=== PATIENT | male | born 1955 | race Asian ===

== ENCOUNTER 2019-03-23 09:49 | Day surgery (SDC) | payer MEDICARE ==
[~2019-03-23] VITALS: Ht 157.5 cm; Wt 75.9 kg
[~2019-03-23 09:49] MED LIST: BAYER CHEWABLE81 MG PO; DULCOLAX5 MG PO; ISOSORBIDE MONO30 M1 PO; KLOR-CON 1010 MEQ PO; LANTUS SOL100 UNIT/1 SC; LASIX80 MG PO; METOPROLOL TART25 MG PO; NORVASC5 MG PO; OMEPRAZOLE40 MG PO; PLAVIX75 MG PO
[2019-03-23 10:26] LABS: HEMATOCRIT 40.2 % (42.0-54.0); HEMOGLOBIN 12.7 g/dL (13.5-17.5); MCHC 31.6 g/dL (31.0-37.0); MCV 94.8 fL (80.0-100.0); MEAN PLATELET VOLUME 9.3 fL (7.4-10.4); RBC 4.24 10x6/uL (4.20-6.10); WBC 8.4 10x3/uL (4.8-10.8)
[2019-03-23 10:38] LABS: ANION GAP 12.2 mmol/L (8-16); CARBON DIOXIDE 29.9 mmol/L (21.0-32.0)
[2019-03-23 10:48] LABS: POTASSIUM - SERUM 7.1 mmol/L (3.5-5.1)
--- NOTE | 2019-03-23 11:07 | NUR ---
POTASSIUM OF 7.1 CALLED TO [facility]GO[facility], HOLD SURGERY FOR NOW AND WILL CALL BACK WITH FURTHER ORDERS.
--- NOTE | 2019-03-23 12:00 | NUR ---
RECEIVED REPORT FROM SABRINA IN OUTPATIENT. PATIENT TO UNIT SOON.
--- NOTE | 2019-03-23 12:06 | NUR ---
1100-RECD TO WAITING ROOM, NO BEDS AVAILABLE 1105-CRITICAL POTASSIUM OF 7.1 RECD, CALL IN TO [facility] FOR RENAL GROUP. 1140-TO ROOM 2504 TO PREP FOR SURGERY 1150-TELEPHONE ORDERS RECD FROM [facility] 1200-[facility] HERE. SAYS TAKE PATIENT TO DIALYSIS NOW, SHE IS READY FOR HIM. 1205-REPORT CALLED TO EV[facility]ISTO ON MED 2-WILL GO TO 2101 POST DIALYSIS. 1210-TELEPHONE ORDERS RECD FROM DR HERNANDEZ TO CANCEL SURGERY TODAY AND RESCHEDULE FOR TOMORROW. ELIZABETH IN OR NOTIFIED.
--- NOTE | 2019-03-23 12:11 | NUR ---
1211JET IN DIALYSIS NOTIFIED PATIENTS SURGERY FOR TODAY IS CX AND HE WILL GO TO ROOM 2101.
[2019-03-23 12:16] VITALS: BMI 30.6
[2019-03-23] MEDS ORDERED: LEXAPRO5 MG PO (12:47)
[2019-03-23] MEDS ORDERED: ROCALTROL0.25 MCG PO (12:48)
[2019-03-23] MEDS ORDERED: HYDRALAZINE HCL25 MG PO (12:48)
[2019-03-23] MEDS ORDERED: RENVELA800 MG PO (12:48)
--- NOTE | 2019-03-23 15:13 | NUR ---
PATIENT ARRIVED TO UNIT VIA WHEELCHAIR FROM DIALYSIS. PATIENT ALERT/ORIENTED. PATIENT AMBULATORY. PATIENT DOES NOT HAVE A LIST OF HIS MEDICATIONS AND CAN NOT TELL ME WHAT HE TAKES. CALLED [facility] IN [place] AND TARUN IS FAXING THIS CALCULATION CLERK A LIST OF HIS CURRENT MEDICATIONS. PROVIDED PATIENT WITH SANDWHICH, GRAPES AND DIET LEMON PICAYUNE PATIENT HAS BEEN NPO SINCE LAST NIGHT AND HE IS HUNGRY. CALL LIGHT PLACED WITHIN REACH AND PATIENT VERBALIZED UNDERSTANDING ON HOW TO USE CALL LIGHT. ORIENTED TO ROOM. PATIENT HAS NO FURTHER REQUESTS AT THIS TIME.
--- NOTE | 2019-03-23 16:04 | NUR ---
GREGOR LOO, RENAL FAN MAIL EDITOR, PATIENT MAY HAVE HIS HYDRALAZINE NOW DUE TO ELEVATED BP AFTER DIALYSIS.
[2019-03-23 16:44] VITALS: BP 183/109; BMI 30.6
--- NOTE | 2019-03-23 18:04 | NUR ---
TOOTHBRUTH AND TOOTHPASTE PROVIDED TO PATIENT. CALL LIGHT WITHIN REACH. NO DISTRESS. DENIES NEEDS AT THIS TIME.
[2019-03-23 18:06] VITALS: BP 163/87
--- NOTE | 2019-03-23 19:00 | NUR ---
EVENING ROUNDS COMPLETE. PT LAYING IN BED. NO SIGNS OF DISTRESS. PT DENIES ANY PAIN OR NEEDS AT THIS TIME. CL IN REACH, BED IN LOWEST POSITION.
[2019-03-23 20:00] VITALS: BP 130/70
[2019-03-24] VITALS: BP 145/81
[2019-03-24 04:00] VITALS: BP 124/69
[2019-03-24 06:11] LABS: BASOPHILS 0.3 % (0-2); EOSINOPHILS 5.5 % (0-7); HEMATOCRIT 36.8 % (42.0-54.0); HEMOGLOBIN 11.4 g/dL (13.5-17.5); IMMATURE GRANULOCYTES 0.3 % (0-5); LYMPHOCYTES 24.9 % (15-50); MCH 29.3 pg (26.0-34.0); MCV 94.6 fL (80.0-100.0); MEAN PLATELET VOLUME 9.7 fL (7.4-10.4); MONOCYTES 19.9 % (2-11); NEUTROPHILS 49.1 % (40-80); PLATELET COUNT 217 10x3/uL (130-400); RBC 3.89 10x6/uL (4.20-6.10); RDW 17.9 % (11.5-14.5); WBC 5.8 10x3/uL (4.8-10.8)
[2019-03-24 06:26] LABS: ANION GAP 10.8 mmol/L (8-16); CALCIUM 7.7 mg/dL (8.5-10.1); CARBON DIOXIDE 28.2 mmol/L (21.0-32.0); CREATININE - SERUM 4.1 mg/dL (0.6-1.3)
--- NOTE | 2019-03-24 06:50 | NUR ---
RECEIVED REPORT. ALERT ABLE TO VOICE NEEDS, DENIES ANY CURRENT ONES. RIGHT HEMOSPLIT INTACT. BED IN LOWEST POSITION AND LOCKED. CAREPLAN REVIEW DONE WITH SAFETY PRECAUTIONS IN PLACE. CL IN REACH
[2019-03-24 09:25] VITALS: BP 163/92
[2019-03-24 12:39] VITALS: Ht 157.5 cm; Wt 75.9 kg
--- NOTE | 2019-03-24 13:30 | NUR ---
DR HERNANDEZ OFFICE CALLED STATED HE COULD EAT AND HIS PROCEDURE WOULD BE DONE TOMORROW. HIM AND FAMILY IN ROOM EXPLAINED THIS AND TRAY WAS ORDERED
[2019-03-24 14:02] VITALS: BP 138/82
[2019-03-24 17:43] VITALS: BP 141/73
--- NOTE | 2019-03-24 19:00 | NUR ---
EVENING ROUNDS COMPLETE. PT SITTING UP ON SIDE OF BED. NO SIGNS OF DISTRESS. CL IN REACH, BED IN LOWEST POSITION. NO C/O PAIN.
[2019-03-24 20:00] VITALS: BP 134/83
[2019-03-25] VITALS: BP 120/69
[2019-03-25 04:00] VITALS: BP 123/69
[2019-03-25 05:12] LABS: BASOPHILS 0.6 % (0-2); EOSINOPHILS 4.7 % (0-7); HEMATOCRIT 36.8 % (42.0-54.0); HEMOGLOBIN 11.6 g/dL (13.5-17.5); IMMATURE GRANULOCYTES 0.2 % (0-5); LYMPHOCYTES 23.2 % (15-50); MCH 29.6 pg (26.0-34.0); MCHC 31.5 g/dL (31.0-37.0); MCV 93.9 fL (80.0-100.0); MEAN PLATELET VOLUME 9.2 fL (7.4-10.4); MONOCYTES 18.2 % (2-11); NEUTROPHILS 53.1 % (40-80); PLATELET COUNT 213 10x3/uL (130-400); RBC 3.92 10x6/uL (4.20-6.10); RDW 17.7 % (11.5-14.5); WBC 6.6 10x3/uL (4.8-10.8)
[2019-03-25 05:32] LABS: ANION GAP 13.3 mmol/L (8-16); CARBON DIOXIDE 25.7 mmol/L (21.0-32.0)
[2019-03-25 05:55] LABS: CREATININE - SERUM 5.3 mg/dL (0.6-1.3)
--- NOTE | 2019-03-25 06:55 | NUR ---
REPORT RECIEVED. HE HAS BEEN NPO SINCE MIDNIGHT FOR FISTULA PLACEMENT THIS AM. HE IS AWAKE AND ALERT, DENIES ANY PAIN OR CURRENT NEEDS, CL IN REACH BED IS LOCKED AND IN LOWEST POSITION. CAREPLAN REVIEW DONE WITH SAFETY PRECAUTIONS IN PLACE. RESP EVEN WITHOUT LABOR
[2019-03-25 08:30] VITALS: BP 125/81
--- NOTE | 2019-03-25 14:13 | NUR ---
MEETS ANESTHESIA DISCHARGE CRITERIA
--- NOTE | 2019-03-25 14:30 | NUR ---
RETURN FROM OR LEFT UPPER ARM AV FISTULA WITH ANAMARIA DRAIN, TWO DRESSING TO INNER ARM AND ONE TO OUTER SIDE OF ARM. HE IS DROWSY BUT AROUSES EASILY. RESP EVEN WITHOUT LABOR DENIES PAIN VSS. HE TOOK SOME WATER.
[2019-03-25 14:31] VITALS: BP 150/90
--- NOTE | 2019-03-25 16:30 | NUR ---
DROWSY BUT AROUSES EASILY. HE HAS TAKEN WATER AND RAIZA WELL NO C/O NAUSEA OR PAIN. TRANSPORTED DOWN TO DIALYSIS VIA BED.
[2019-03-25 16:37] VITALS: BP 129/72
--- NOTE | 2019-03-25 19:05 | NUR ---
EVENING ROUNDS COMPLETE, PT IS AT DIALYSIS AT THIS TIME.
[2019-03-25 20:00] VITALS: BP 152/73
--- NOTE | 2019-03-25 20:00 | NUR ---
PT BACK FROM DIALYSIS. NO SIGNS OF DISTRESS. PT DENIES ANY NEEDS AT THIS TIME.
--- NOTE | 2019-03-25 21:29 | OP ---
PATIENT NAME: RAPHAEL ANNA MEDICAL RECORD: [id number] :53 LOCATION:D.M2 D.2101 ADMISSION DATE: SURGEON: MISSAEL HERNANDEZ MD DATE OF OPERATION: 03/25/2019 PREOPERATIVE DIAGNOSIS: End-stage renal disease without peripheral access for hemodialysis. POSTOPERATIVE DIAGNOSIS: End-stage renal disease without peripheral access for hemodialysis. PROCEDURE: Placement of left arm looped arteriovenous graft fistula, 6-mm. SURGEON: Missael Hernandez MD TOURIST INFORMATION ASSISTANT: None. BLOOD LOSS: 100 cc. ANESTHESIA: General. COMPLICATIONS: None. DRAINS: Times 1 (10-Guamanian round drain). The risks, possible complications and alternatives to the procedure were explained to the patient. He elects to proceed. The discussion specifically included, but was not limited to, bleeding requiring emergency reoperation, infection, nerve injury, steal syndrome. OPERATIVE COURSE: The patient was conveyed to the operating room electively on 03/25/2019. General anesthesia was induced by the anesthesia staff. The left lower extremity was abducted at 90 degrees to the patient's trunk. Under ultrasonographic guidance, I identified the brachial artery as well as the brachial veins. An axial incision was accomplished on the medial aspect of the left arm. Sharp dissection was carried down to the basilic vein, which was encircled with vessel loops and then the brachial artery, which was encircled with vessel loops. The posterior brachial vein had to be ligated and divided in order to allow for easier access to the brachial artery. There was still another brachial vein that was intact. This was a brachial artery to basilic vein graft. I created 2 incisions on the lateral aspect of the left arm. I tunneled a 6-mm PTFE graft from the main incision to the secondary incision to the tertiary incision and then back to the main incision. During the tunneling process, there was no apparent kinking or twisting of the PTFE graft. Intravenous heparin was given. An axial incision was accomplished over the brachial artery. I punched out some ovals in the artery with an aortic punch. A side-to-end arterial to graft anastomosis was then fashioned with a running 6-0 Prolene suture. I then flushed out through the graft. A vascular clamp was then placed on the graft. OPERATIVE REPORT [id number] RAPHAEL ANNA At the venous end of the graft, I beveled the graft. Axial venotomy was accomplished. An end-to-side graft to venous anastomosis was then fashioned with a running 6-0 Prolene. Hopefully, this will provide for treble outflow as there was a bridging vein. Control was released on the graft. There was an excellent thrill within the graft. I could not feel a radial artery pulse at the wrist. I elected to partially band the graft at this time. A 2-0 Prolene was applied just downstream from the arterial anastomosis. I tied it down a bit and then tied. I tightened it down to such a degree that I could feel a radial artery pulse at the wrist. Essentially, this was an immediate banding of the graft. At the main incision, I brought out a 10-Guamanian round closed suction drain. This was sutured to skin with 2-0 nylon. The main incision was closed with interrupted 3-0 Vicryls for the adipose tissue as well as a running intracuticular 4-0 Vicryl for the skin. The other two incisions were closed with interrupted 3-0 Vicryls for the deep dermis as well as a running intracuticular 4-0 Vicryl for the skin. Sterile dressings were applied. The patient was then extubated and conveyed to post-anesthesia care unit where he was in stable condition. Hopefully, he can be dismissed home tomorrow. TRANSINT:[id number] Voice Confirmation ID: [id number] DOCUMENT ID: [id number] MISSAEL HERNANDEZ MD at 2127 CC: MAGDA SANDOVAL [id number] DICTATION DATE: 03/25/19 1347 DISK RECORDIST: 03/25/19 1409 [facility] [address] [id number]
[2019-03-26] VITALS: BP 147/75
[2019-03-26 04:00] VITALS: BP 134/72
--- NOTE | 2019-03-26 06:55 | NUR ---
REPORT RECEIVED. HE IS ALERT AND AWAKE. LEFT UPPER ARM WITH DRESSING INTACT TO FISTULA SITES, ANAMARIA DRAIN INTACT. RIGHT CHEST HEMOSPLIT SITE CLEAR. CL IN REACH. BED IS LOCKED AND IN LOWEST POSITION. CAREPLAN REVIEW DONE WITH SAFETY PRECAUTIONS IN PLACE
--- NOTE | 2019-03-26 07:04 | NUR ---
ANAMARIA DRAIN OUTPUT OF 30ML
--- NOTE | 2019-03-26 08:30 | NUR ---
ANAMARIA DRAIN WAS REMOVED RAIZA WELL. NO BLEEDING FROM SITE. HE OFFERS NO C/O
--- NOTE | 2019-03-26 08:55 | DS ---
PATIENT:RAPHAEL ANNA :53 MEDICAL RECORD: [id number] DISCHARGE SUMMARY ADMISSION DATE: 03/23/19 DISCHARGE DATE: PRINCIPAL DIAGNOSES: End-stage renal disease without chronic access for hemodialysis. PRINCIPAL PROCEDURE: Placement of left arm looped 6-mm PTFE graft. OTHER DIAGNOSES: 1. Include end-stage renal disease on chronic hemodialysis. 2. Diabetes. 3. Hypertension. 4. Coronary stents. 5. Coronary artery bypass grafting. 6. History of colon resection. 7. Depression. 8. Anemia of chronic disease. 9. Hyperkalemia. SUMMARY: The patient was to undergo placement of AV graft fistula. Due to a challenging operative schedule, the patient was delayed. Additionally, he was hyperkalemic when he presented the initial day where he was to have surgery. Anyhow, he underwent placement of the graft. He is going to be dismissed home. There is a script for a narcotic on the chart. I would like to see him in the office in 2-3 weeks. TRANSINT:[id number] Voice Confirmation ID: [id number] DOCUMENT ID: [id number] SHAISTA HERNANDEZ MD at 0855 CC: [id number] DICTATION DATE: 03/25/19 2336 MEDICAL STAFF COORDINATOR: 03/26/19 [id number] [place] [address]
[2019-03-26] MEDS ORDERED: HYDROCODON-ACE1 EAC7 (09:07)
[2019-03-26 09:59] VITALS: BP 117/67
--- NOTE | 2019-03-26 12:36 | NUR ---
Nutrition Follow-up: S/p AVG on 03/25. Noted plans for d/c today. ~50% of breakfast eaten this AM. Diet: Renal ADA Wt: 167# No BMs recorded Labs reviewed Meds noted: Lasix, Calcitriol, Renagel Continue current diet as tolerated. RD following.
--- NOTE | 2019-03-26 14:10 | NUR ---
DISCHARGE INSTRUCTIONS EXPLAINED IN DETAIL TO HIM, HARDSCRIPT OF HYDROCODONE GIVEN TO HIM AND HE UNDERSTANDS TO GET IT FILLED AT HIS PHARMACY. HE WAS TRANSPORTED DOWN BY W/C TO [facility]IVATE [facility] IN STABLE CONDITION. RIGHT HEMOSPLIT INTACT FOR DIALYSIS. LEFT DRESSING D/I TO ARM
== END 2019-03-26 14:10 | disposition home or self-care (01) ==
LOC: D.OPS 09:49 → D.M2 09:49 → D.OPS 10:45 → D.M2 15:00 → D.OPS 03-26 14:10
PROVIDERS: Anesthesiology; Internal Medicine; Internal Medicine Nephrology; ATTEND Surgery
DX: I12.0 Hypertensive chronic kidney disease with stage 5 chronic kidney disease or end stage renal disease (principal); N18.6 End stage renal disease; E87.5 Hyperkalemia; D63.1 Anemia in chronic kidney disease; F32.9 Major depressive disorder, single episode, unspecified